=== PATIENT | female | born 1965 | race Caucasian/White ===

== ENCOUNTER 2020-04-06 11:43 | Day surgery (SDC) | payer OTHER, SELFPAY ==
[2020-04-06] VITALS (7 sets, daily range): BP systolic 130–152; BP diastolic 79–89; PULSE 60–71; RESP 12–20; TEMP 36.3–36.4; O2SAT 96–100; BMI 26.6
--- NOTE | ~2020-04-06 | XR_ITS ---
EXAMINATION: XR retrograde pyelo w/stent LT DATE: 04/06/2020 15:18 INDICATION: Left internal ureteral stent placement TECHNIQUE: Fluoroscopic images from a left internal ureteral stent placement are submitted for review . 8 seconds of fluoroscopy time. 8 fluoroscopic images FINDINGS: There is a left double-J internal ureteral stent projecting in expected position, with proximal Clare loop at the level of the renal pelvis. IMPRESSION: 1. Left internal ureteral stent placement. Please refer to real-time procedural findings for detail s. Reviewed, dictated and finalized at location B. IMPRESSION: 1. Left internal ureteral stent placement. Please refer to real-time procedur al findings for details.
[2020-04-06] MEDS: fentaNYL CITRATE INJ (*CRX) 100 MCG/2 ML VIAL 50 MCG IV PUSH (13:30)
[2020-04-06] MEDS: LACTATED RINGERS 1,000 ML 30 ML IV CONT ×2 (13:30→15:19)
--- NOTE | 2020-04-06 13:35 | WPDHPUPDATE1 ---
History and Physical Update Update Date/Time: 04/06/20 13:35 History and Physical has been reviewed, including an updated exam of the patient. There are NO changes in the patient's condition. Risks, benefits, and alternatives have been discussed and questions answered. Patient agrees to proceed with procedure. Proceed with cysto, left retrograde, left ureteroscopy with stone extraction, possible laser , stent placement.
--- NOTE | 2020-04-06 13:40 | WPDANESEPPF ---
Anes - Initial Pre Proc Eval Procedure: Operation Date: 04/06/20 15:00 Proposed Procedures p Cystoscopy, Left Ureteroscopy, Left Stone Extraction, Possible Left Retrograde Pyelogram, Possible Left Stent Placement - Derik Luna MD s Possible Holmium Laser Procedure - Derik Luna MD Date/Time: 04/06/20 13:40 Surgeon: Derik Luna MD Pre Op Diagnosis: Left Ureteral Stone Patient Data Age: 54 Gender: F Height: 5 ft 9 in Weight: 82 kg Allergies Allergy/AdvReac Type Severity Reaction Status Date / Time No Known Allergies Allergy Unknown Verified 04/06/20 12:42 Home Medications Medication Instructions Recorded Confirmed Type sertraline [Zoloft] 100 mg PO DAILY 04/06/20 04/06/20 History Patient hx anesthesia problems: none Family hx anesthesia problems: none [facility] Past Medical History Medical History (Updated 04/06/20 @ 13:41 by Adam Berry MD) Overweight Renal stones Surgical History Surgical History (Updated 04/06/20 @ 13:41 by Adam Berry MD) H/O lithotripsy Social History Social History Smoking status: Never smoker Alcohol intake: never Substance use: never Substance use type: does not use Living arrangements: with family Gender identity (if verbalized by the patient): Female Spiritual care concerns: No Anes - Eval Final PreProcedure Day of Procedure 04/06/20 13:40 Patient weight: overweight Heart: regular rate and rhythm Lungs: clear to auscultation Airway: Mallampati scale class 1 Neurological: alert and oriented Last oral intake: >/= 8 hours ASA classification: II Emergent: yes Anesthetic plan: proceed Anesthesia type and monitoring: general ETT and standard monitoring Informed Consent: The patient's anesthetic plan and its attendant risks and benefits were discussed with the patient/family/POA. Questions were solicited and answers provided to the satisfaction of the patient/family/POA.
[2020-04-06] MEDS: SCOPOLAMINE 1.5 MG PATCH TRANSDERM (13:49)
[2020-04-06] MEDS: ceFAZolin 2 GM/D5W 50 ML 2 GM/50 ML BAG IVPB (14:49)
--- NOTE | 2020-04-06 15:12 | PM.PROC ---
Procedure Note - Detailed Date of procedure: 04/06/20 Pre-op diagnosis: Left Ureteral Stone Post-op diagnosis: same Procedure performed: Cystoscopy, left retrograde pyelogram, left ureteroscopy with stone extraction, left ureteral stent placement. Description of procedure: Patient was taken to the operative suite and correctly identified. Once anesthesia was obtained she was placed in dorsal lithotomy position prepped draped usual sterile fashion. Twenty-two Canadian scope was inserted the bladder. The left ureteral orifice was cannulated with a guidewire. An 8/10 dilator was used to dilate the orifice. A rigid ureteral scope was then inserted. The stone was visualized we were able to retrieve it in its entirety using an escape basket. Pyelogram was then performed to confirm placement of the stent. 4.8 Canadian contour stent was then placed with proximal end coiled in the renal pelvis and the distal in the bladder. Bladder was drained. 2% viscous lidocaine was inserted urethra patient is taken recovery room stable condition. She will follow up in a week's time for stent removal Pet[facility] call for that appointment. Anesthesia: GLMA Surgeon: Derik Luna MD Drains: Yes Packing: No Pathology: yes Complications: No immediate complications Condition: stable Disposition: PACU
[2020-04-06] MEDS: LIDOCAINE HCL 2% GEL UROJET 10 ML PKG MUCOUS MEM (15:17)
--- NOTE | 2020-05-26 12:32 | PM.IMHP ---
H&P: HPI History of Present Illness Date/Time: 05/26/20 12:32 Chief complaint: Left Ureteral Stone Narrative: Jael Myles is a 54 year old female Who was found to have a left ureteral calculus. She now presents for definitive therapy with cysto left retrograde pyelogram left ureteroscopy with stone extraction possible laser stent placement. Review of Systems Review of Systems: All systems reviewed & are unremarkable except as noted in HPI and below PMFSH Past Medical History Medical History Overweight Renal stones Surgical History Surgical History H/O lithotripsy Social History Social History Smoking status: Never smoker Alcohol intake: never Substance use: never Substance use type: does not use Living arrangements: with family Gender identity (if verbalized by the patient): Female Spiritual care concerns: No Meds Home Medications and Allergies Home Medications Medication Instructions Recorded Confirmed Type sertraline [Zoloft] 100 mg PO DAILY 04/06/20 04/06/20 History Allergies Allergy/AdvReac Type Severity Reaction Status Date / Time No Known Allergies Allergy Unknown Verified 04/06/20 13:44 Exam Const: General: cooperative Eyes: General: appearance normal, both eyes and all related structures Chest: Chest palpation & inspection: normal inspection of the chest Resp: Effort & Inspection: normal respiratory effort Cardio: Rate: regular rate GI: Inspection: normal to inspection Assessment and Plan Assessment and plan (1) Left ureteral calculus: Code(s): N20.1 - Calculus of ureter Status: Acute Additional Plan Plan for cystoscopy, left retrograde pyelogram, left ureteroscopy with stone extraction, possible holmium laser, possible stent placement.
== END 2020-04-06 16:58 | disposition home or self-care (01) ==
PROVIDERS: PCP Family Medicine; Visit Provider Urology
PROC: (CPT 52352; principal; 2020-04-06 15:00)
DX: N20.1 Calculus of ureter (principal)
CPT/HCPCS: 52332; 52352; 74420; 82365; 88300; A9270; C1769; C2617; J0690; J1100; J1200; J1885; J2250; J2405; J2704; J3010; J7120; Q9966

== ENCOUNTER 2020-11-18 15:26 | Outpatient (CLI) | payer OTHER, SELFPAY ==
--- NOTE | ~2020-11-18 | XR_ITS ---
XR abdomen/kub 1V DATE: 11/18/2020 15:46 INDICATION: Left flank pain. History of stones. TECHNIQUE: AP projection, 2 views COMPARISON: 04/06/2020 left retrograde pyelogram 08/20/2018 CT abdomen pelvis 08/21/2017 KUB FINDINGS: Approximately 2.8 x 7 mm comma-shaped calcification overlies the distal left ureter, not pr esent on 08/21/2017, consistent with distal left ureteral calcified calculus. Calcifications overlie both renal silhouette suggesting bilateral nephrolithiasis. Noncontrast CT abd omen pelvis would be helpful for more definitive evaluation of urinary tract calculi. The psoas shadows are intact. No visceromegaly is evident. There is no evidence of bowel obstruction. IMPRESSION: Approximately 2.8 x 7 mm distal left ureteral calcified calculus Reviewed, dictated and finalized at Location A. Reviewed, dictated and finalized at location A.
== END 2020-11-18 15:27 | disposition home or self-care (01) ==
PROVIDERS: PCP Family Medicine; Visit Provider Urology
DX: R10.9 Unspecified abdominal pain (principal)
CPT/HCPCS: 74018

== ENCOUNTER 2021-10-11 00:56 | Day surgery (SDC) | payer OTHER, SELFPAY ==
[2021-10-10 15:05] VITALS: BMI 27.3
--- NOTE | 2021-10-10 15:10 | PC.NURSE ---
Report to the Outpatient Waiting Room, entrance under the green pavilion located off [facility], at time 0900__ on date _[id number]_. OR Time: _1100__. - You and your visitor will be asked a series of questions to screen for COVID 19 for your protection. - A mask is required within the hospital. - Patient has received COVID Vaccine at least 14 days prior to procedure date. Patients may have clear liquids (water, carbonated beverages, clear teas, apple juice) until 3 hours prior to surgery with a maximum of 20 ounces. - No food from midnight until time of surgery Take the following medications with a SIP of water the morning of surgery: ___pain pill if needed. Medications to discontinue per physician Date to take last dose Please no make-up, nail pashto, hairspray, perfume, deodorant, or body powder the day of surgery. No jewelry (including any body piercings) or valuables the day of surgery, leave them at home. Please take a shower or bath the night before, or the morning of, surgery with an antibacterial soap. Wear comfortable, loose fitting clothing. Children are encouraged to wear pajamas. - Jewelry must be removed prior to entering the operating room. Rings and piercings that are not removed may be cut off. - The hospital will not accept responsibility for valuables. - Please leave all valuables, including medications, at home the day of surgery. If you are going home after surgery, a licensed river driver must drive you home. - NO public transportation without another adult. - We recommend that an adult stay with you for 24 hours following discharge. - We also recommend that you do not drive, make important decision, drink alcoholic beverages, or take any drugs that were not prescribed by your health care provider for at least 24 hours after your discharge time. For Pediatric surgeries, we recommend two adults accompany the child home (only one inside the building at this time). One visitor will be allowed to accompany the patient into the hospital. Patients visitor will be instructed to remain with patient at all times or leave the building. We will allow the visitor to come back to the postoperative area when patient is ready. Follow any additional instructions given to you from your surgeon. Telephone instructions given to __Patient and asked if any additional questions and then verbalized understanding. Patient advised to call surgeon office or pre surgery nurse liaison [phone] if any additional questions.
[2021-10-11] VITALS (7 sets, daily range): BP systolic 116–148; BP diastolic 60–97; PULSE 68–88; RESP 14–20; TEMP 37–37.5; O2SAT 97–100
--- NOTE | ~2021-10-11 | XR_ITS ---
EXAMINATION: XR abdomen/kub 1V DATE: 10/11/2021 09:03 INDICATION: Left-sided kidney stones. TECHNIQUE: A supine view of the abdomen on 2 radiographs was obtained. COMPARISON: Abdomen radiographs 11/18/2020, CT abdomen and pelvis 08/20/2018 FINDINGS: There is a phlebolith in left pelvis. The kidneys are obscured by bowel. There are no dilat ed loops of bowel. There are stones in right kidney measuring up to 5 mm. A calcification overlying l eft kidney measuring 6 mm may be a stone. Calcifications overlie left side of the sacrum that may be stones in the distal left ureter. IMPRESSION: 1. Calcifications overlying left side of the sacrum that may be stones in the distal left ureter. 2. Bilateral kidney stones. Reviewed, dictated and finalized at location A. IMPRESSION: 1. Calcifications overlying left side of the sacrum that may be stones in the d istal left ureter. 2. Bilateral kidney stones.
--- NOTE | ~2021-10-11 | XR_ITS ---
EXAMINATION: XR retrograde pyelo w/stent LT DATE: 10/11/2021 12:01 INDICATION: Left ureteral stone TECHNIQUE: 3 fluoroscopic images of the abdomen and pelvis were obtained during procedure performed b romy Luna. Radiologist was not present for the imaging or procedure. The amount of fluoroscopy t tarun used during this procedure was 0.2 minutes. COMPARISON: None. FINDINGS: Retrograde contrast injection demonstrates mild mild left hydroureteronephrosis. A wire has been adva nced through the left ureter into an upper pole calyx of the left kidney. Subsequent images demonstra te placement of a left intrarenal stent with loops formed at the left renal pelvis and in the bladder . No stones seen along the course of the ureteral stent. IMPRESSION: 1. Mild left hydroureteronephrosis with placement of a left internal ureteral stent which is in expec katia position. See procedure note regarding the reported ureteral stone which is not appreciated on th e provided images. Reviewed, dictated and finalized at location B. IMPRESSION: 1. Mild left hydroureteronephrosis with placement of a left internal ureteral s tent which is in expected position. See procedure note regarding the reported u reteral stone which is not appreciated on the provided images.
--- NOTE | 2021-10-11 07:55 | P.PNAN_ITS ---
Anes - Initial Pre Proc Eval Procedure: Operation Date: 10/11/21 11:00 Proposed Procedures p Cystoscopy, Left Ureteroscopy, Left Retrograde Pyelogram, Left Stone Extraction, Possible Left Stent Placement, Possible Holmium Laser - Derik Luna MD Date/Time: 10/11/21 07:55 Surgeon: Derik Luna MD Pre Op Diagnosis: left ureteral stone Patient Data Age: 56 Gender: F Height: 1.75 m Weight: 84 kg Allergies Allergy/AdvReac Type Severity Reaction Status Date / Time No Known Allergies Allergy Unknown Verified 10/11/21 09:08 Home Medications Medication Instructions Recorded Confirmed Type sertraline [Zoloft] 100 mg PO HS 04/06/20 10/11/21 History oxycodone-acetaminophen 1 tablet PO Q4H PRN 10/10/21 10/11/21 History sulfamethoxazole-trimethoprim 1 tablet PO Q12H 10/10/21 10/11/21 History [Bactrim DS] Patient hx anesthesia problems: none Family hx anesthesia problems: none Results Review: All pre-operative results and documents have been reviewed as part of the pre-operative evaluation. [facility] Past Medical History Medical History (Updated 10/11/21 @ 07:56 by Shahab Cabrera MD) Anxiety Overweight Renal stones Surgical History Surgical History H/O lithotripsy Social History Social History Smoking status: Never smoker Alcohol intake: current Substance use: never Substance use type: does not use Living arrangements: with family Gender identity (if verbalized by the patient): Female Spiritual care concerns: No Anes - Eval Final PreProcedure Day of Procedure 10/11/21 07:55 Patient weight: overweight Heart: regular rate and rhythm Lungs: clear to auscultation and normal air movement Airway: Mallampati scale class II Neurological: alert and oriented Last oral intake: >/= 8 hours ASA classification: II Emergent: no Anesthetic plan: proceed Anesthesia type and monitoring: general LMA Results Review: All pre-operative results and documents have been reviewed as part of the pre-operative evaluation. Informed Consent: The patient's anesthetic plan and its attendant risks and benefits were discussed with the patient/family/POA. Questions were solicited and answers provided to the satisfaction of the patient/family/POA.
[2021-10-11] MEDS: LACTATED RINGERS 1,000 ML 30 ML IV CONT (09:31)
--- NOTE | 2021-10-11 09:53 | WPDHPUPDATE1 ---
History and Physical Update Update Date/Time: 10/11/21 09:53 History and Physical has been reviewed, including an updated exam of the patient. There are NO changes in the patient's condition. Risks, benefits, and alternatives have been discussed and questions answered. Patient agrees to proceed with procedure. Proceed with cystoscopy left retrograde pyelogram possible left ureteroscopy with holmium laser stone extraction and stent placement
--- NOTE | 2021-10-11 11:14 | PM.IMHP ---
H&P: HPI History of Present Illness Date/Time: 10/11/21 11:14 Chief Complaint: left ureteral calculi Narrative: 56 yr old female with left renal colic found to have multiple left ureteral calculi. Here for management. Review of Systems Review of Systems: All systems reviewed & are unremarkable except as noted in HPI and below PMFSH Past Medical History Medical History Anxiety Overweight Renal stones Surgical History Surgical History H/O lithotripsy Social History Social History Smoking status: Never smoker Alcohol intake: current Substance use: never Substance use type: does not use Living arrangements: with family Gender identity (if verbalized by the patient): Female Spiritual care concerns: No Meds Home Medications and Allergies Home Medications Medication Instructions Recorded Confirmed Type sertraline [Zoloft] 100 mg PO HS 04/06/20 10/11/21 History oxycodone-acetaminophen 1 tablet PO Q4H PRN 10/10/21 10/11/21 History sulfamethoxazole-trimethoprim 1 tablet PO Q12H 10/10/21 10/11/21 History [Bactrim DS] Allergies Allergy/AdvReac Type Severity Reaction Status Date / Time No Known Allergies Allergy Unknown Verified 10/11/21 09:08 Vital Signs Vital Signs - 24 hr 10/11/21 09:19 Temperature 37.5 C Pulse Rate 72 Respiratory Rate 16 Blood Pressure 127/81 Pulse Oximetry 99 Exam Const: General: cooperative Resp: Effort & Inspection: normal respiratory effort Cardio: Rate: regular rate Rhythm: regular rhythm Assessment and Plan Assessment and plan (1) Left ureteral calculus: Code(s): N20.1 - Calculus of ureter Status: Acute Assessment and Plan: cystoscopy, left retrograde, left ureteroscopy with stone extraction, laser , stent.
[2021-10-11] MEDS: ceFAZolin 2 GM/D5W 50 ML 2 GM/50 ML BAG IVPB (11:19)
[2021-10-11] MEDS: LIDOCAINE HCL 2% GEL UROJET 10 ML PKG MUCOUS MEM (11:36)
--- NOTE | 2021-10-11 11:56 | P.OP_ITS ---
Procedure Note - Detailed Date of Procedure 10/11/21 Pre-op Diagnosis left ureteral stone Post-op Diagnosis Same Procedure Performed Cystoscopy, left retrograde pyelogram, left ureteroscopy with holmium laser, stone extraction, stent placement 4.8 Maori contour Surgeon Derik Luna MD Anesthesia General Findings 2 stones noted the largest stone is bivalved and jagged. This would explain the perception were appearance of multiple additional stones on CT Description of Procedure Patient is taken to the operative suite and correctly identified. Once anesthesia was obtained she was prepped and draped usual sterile fashion. Twenty-two Maori scope inserted the bladder. Left orifice was cannulated with a guidewire. The rigid ureteral scope was inserted and. Smaller stone was retrieved using escape basket. The largest stone was bivalved and jagged. It was too large to retrieve 1 piece. Using a 200 micron fiber the stone was lasered into multiple pieces. These were retrieved and sent for analysis. Reinspection revealed no residual stones. Pyelogram was then performed to confirm placement the stent in the kidney. A 4.8 Maori contour stent was then placed with the proximal end coiled in the renal pelvis and the distal in the bladder. Bladder was drained. 2% viscous lidocaine was inserted into the urethra patient is taken recovery stable condition. She will follow up in a week's time for stent removal. Drains Yes Packing No Pathology Yes Complications No immediate complications Condition Stable Disposition PACU
--- NOTE | 2021-10-11 12:29 | SUR.PHASEI ---
1215 - pt has a area on tongue where she bit down on oral airway. MARCIA Coleman aware. pt understanding
== END 2021-10-11 13:34 | disposition home or self-care (01) ==
PROVIDERS: PCP Family Medicine; Visit Provider Urology
PROC: (CPT 52352; principal; 2021-10-11 11:00)
DX: N13.2 Hydronephrosis with renal and ureteral calculous obstruction (principal); F41.9 Anxiety disorder, unspecified
CPT/HCPCS: 52356; 74018; 74420; 82365; 88300; A9270; C1758; C1769; C2617; J0690; J1100; J2250; J2405; J2704; J3010; J7120; Q9966

== ENCOUNTER 2023-12-14 01:48 | Day surgery (SDC) | payer OTHER, SELFPAY ==
[2023-12-13 14:06] VITALS: BMI 28.0
--- NOTE | 2023-12-13 14:08 | PC.NURSE ---
Report to the Outpatient Waiting Room, entrance under the green pavilion located off [facility], at time _1230_ on date _[id number]_. Planned Procedure Time: _230pm_. Time changes happen often and if your time is changed the preop area will call you the afternoon before. - You and your visitor will be asked to self-screen and do not enter if you have any COVID symptoms. - A mask is optional within the hospital at this time. Patients may have clear liquids (water, carbonated beverages, clear teas, apple juice) until 3 hours prior to surgery with a maximum of 20 ounces. - No food from midnight until time of surgery Take the following medications with a SIP of water the morning of surgery: ____None DO NOT STOP ANY OF YOUR OTHER PRESCRIPTION MEDICATIONS PRIOR TO SURGERY ?EXCEPT THE FOLLOWING Medications to discontinue per physician ____None____ Date to take last dose Please no make-up, nail hong konger, hairspray, perfume, deodorant, or body powder the day of surgery. No jewelry (including any body piercings) or valuables the day of surgery, leave them at home. Please take a shower or bath the night before, or the morning of, surgery with an antibacterial soap. Wear comfortable, loose fitting clothing. - Jewelry must be removed prior to entering the operating room. Rings and piercings that are not removed may be cut off. - The hospital will not accept responsibility for valuables. - Please leave all valuables, including medications, at home the day of surgery. If you are going home after surgery, a licensed straight truck driver must drive you home. - NO public transportation without another adult if you receive anesthesia. - We recommend that an adult stay with you for 24 hours following discharge. - We also recommend that you do not drive, make important decision, drink alcoholic beverages, or take any drugs that were not prescribed by your health care provider for at least 24 hours after your discharge time. Follow any additional instructions given to you from your surgeon. If you or anyone in your household have experienced Covid symptoms in the past week, please notify your surgeon or the nurse liaison at the phone number below for possible testing. Telephone instructions given to __Tina and asked if any additional questions and then verbalized understanding. Patient advised to call surgeon office or pre surgery nurse liaison [phone] if any additional questions.
[2023-12-14] VITALS (7 sets, daily range): BP systolic 107–158; BP diastolic 62–98; PULSE 60–72; RESP 16–18; TEMP 36–36.9; O2SAT 96–100
--- NOTE | ~2023-12-14 | XR_ITS ---
EXAMINATION: XR retrograde pyelo w/stent LT DATE: 12/14/2023 13:47 INDICATION: Left ureteral stone. TECHNIQUE: 5 intraoperative fluoroscopic views of the abdomen and pelvis were obtained. I was not pre sent. Fluoroscopy exposure time was 23 seconds. COMPARISON: Abdomen radiograph 10/11/2021 FINDINGS: The left-sided retrograde pyelogram demonstrates mild hydronephrosis. The final image demon strates a left internal ureteral stent in expected position. There are stones in the right kidney. IMPRESSION: 1. Left internal ureteral stent in expected position. 2. Right kidney stones. Reviewed, dictated and finalized at location A.
--- NOTE | 2023-12-14 12:12 | P.HP_ITS ---
H&P: HPI History of Present Illness Date/Time: 12/14/23 12:12 Chief Complaint: Left ureteral calculus 6 x 5 mm Narrative: 58-year-old female who was found have a 6 x 5 mm left distal ureteral calculus. She now presents for cystoscopy, left retrograde pyelogram left ureteroscopy with stone extraction. She also has a 12 x 7 mm stone in the left kidney and a 19 x 11 mm stone in the right kidney. These will need to be addressed at a later point time. Review of Systems Review of Systems: All systems reviewed & are unremarkable except as noted in HPI and below [facility] Past Medical History Medical History (Updated 12/14/23 @ 12:14 by Derik Luna MD) Anxiety Overweight Renal stones Surgical History Surgical History H/O lithotripsy Social History Social History Smoking status: Never smoker Alcohol intake: current Substance use: never Substance use type: does not use Living arrangements: with family Gender identity (if verbalized by the patient): Female Spiritual care concerns: No Meds Home Medications and Allergies Home Medications Medication Instructions Recorded Confirmed Type sertraline 100 mg tablet (Zoloft) 100 mg PO HS 04/06/20 12/13/23 History Allergies Allergy/AdvReac Type Severity Reaction Status Date / Time No Known Allergies Allergy Unknown Verified 12/13/23 13:59 Exam Const: General: cooperative and no acute distress Resp: Effort & Inspection: normal respiratory effort Cardio: Rate: regular rate Rhythm: regular rhythm Assessment and Plan Assessment and plan (1) Left ureteral calculus: Code(s): N20.1 - Calculus of ureter Status: Acute Assessment and Plan: Plan for cystoscopy, left retrograde pyelogram, left ureteroscopy with stone extraction possible laser and stent placement (2) Bilateral renal stones: Code(s): N20.0 - Calculus of kidney Status: Acute Assessment and Plan: Will need to discuss treatment at a later point time with either lithotripsy or repeated ureteroscopy
--- NOTE | 2023-12-14 12:15 | WPDHPUPDATE1 ---
History and Physical Update Update Date/Time: 12/14/23 12:15 History and Physical has been reviewed, including an updated exam of the patient. There are NO changes in the patient's condition. Risks, benefits, and alternatives have been discussed and questions answered. Patient agrees to proceed with procedure. Proceed with cystoscopy, retrograde pyelogram, left ureteroscopy with stone extraction, possible laser, stent placement
[2023-12-14] MEDS: LACTATED RINGERS 1,000 ML 30 ML IV CONT (12:50)
[2023-12-14 12:53] LABS: Add Urine Microscopic? YES; Appearance Urine Clear (Clear); Bacteria Urine None Seen /hpf; Bilirubin Urine Negative (Negative); Blood Urine 1+ (Negative); Color Urine Yellow (Yellow); Glucose Urine UA Negative (Negative); Ketones Urine Negative (Negative); Leukocyte Esterase Ur Negative LEU/UL (Negative); Nitrate Urine Negative (Negative); Non Pathogenic Casts 0-2; Protein Urine Negative (Negative); RBC Urine 21-50 /hpf (0-2); Specific Grav Ur 1.011 (1.001-1.035); Squamous Epithelial Cell Urine None Seen /hpf (Few); Urobilinogen Urine 0.2 mg/dL (<2.0); WBC Urine 0-5 /hpf (0-3)
--- NOTE | 2023-12-14 12:55 | WPDANESEPPF ---
Anes - Initial Pre Proc Eval Procedure: Operation Date: 12/14/23 14:30 Proposed Procedures p Cystoscopy, Left Ureteroscopy, Left Retrograde Pyelogram, Left Stone Extraction, Possible Holmium Laser, Left Stent Placement - Derik Luna MD Date/Time: 12/14/23 12:55 Surgeon: Derik Luna MD Pre Op Diagnosis: Lt Ureteral Stone Patient Data Age: 58 Gender: F Height: 1.75 m Weight: 86 kg Allergies Allergy/AdvReac Type Severity Reaction Status Date / Time No Known Allergies Allergy Unknown Verified 12/13/23 13:59 Home Medications Medication Instructions Recorded Confirmed Type sertraline 100 mg tablet (Zoloft) 100 mg PO HS 04/06/20 12/13/23 History Laboratory Tests 12/14/23 12:44 Urine Color Yellow (Yellow) Urine Appearance Clear (Clear) Urine pH 7.0 (5.0-9.0) Ur Specific [place] 1.011 (1.001-1.035) Urine Protein Negative mg/dL (Negative) Urine Glucose (UA) Negative mg/dL (Negative) Urine Ketones Negative mg/dL (Negative) Ur Blood (Man) 1+ H (Negative) Urine Nitrate Negative (Negative) Urine Bilirubin Negative (Negative) Urine Urobilinogen 0.2 mg/dL (<2.0) Leukocyte Esterase Rfl Negative BELINDA/UL (Negative) Urine RBC 21-50 H /hpf (0-2) Urine WBC 0-5 /hpf (0-3) Ur Squamous Epith Cells None seen /hpf (Few) Urine Bacteria None seen /hpf Urine Casts 0-2 Patient hx anesthesia problems: none Family hx anesthesia problems: none Results Review: All pre-operative results and documents have been reviewed as part of the pre-operative evaluation. [facility] Past Medical History Medical History Anxiety Overweight Renal stones Surgical History Surgical History H/O lithotripsy Social History Social History Smoking status: Never smoker Alcohol intake: current Substance use: never Substance use type: does not use Living arrangements: with family Gender identity (if verbalized by the patient): Female Spiritual care concerns: No Anes - Eval Final PreProcedure Day of Procedure 12/14/23 12:55 Patient weight: overweight Heart: regular rate and rhythm Lungs: clear to auscultation Airway: Mallampati scale class II Neurological: alert and oriented Last oral intake: >/= 8 hours ASA classification: II Emergent: no Anesthetic plan: proceed Anesthesia type and monitoring: general LMA and standard monitoring Results Review: All pre-operative results and documents have been reviewed as part of the pre-operative evaluation. Informed Consent: The patient's anesthetic plan and its attendant risks and benefits were discussed with the patient/family/POA. Questions were solicited and answers provided to the satisfaction of the patient/family/POA.
[2023-12-14] MEDS: ceFAZolin 2 GM/D5W 50 ML 2 GM/50 ML BAG IVPB (13:03)
[2023-12-14] MEDS: LIDOCAINE HCL 2% GEL UROJET 10 ML PKG MUCOUS MEM (13:14)
--- NOTE | 2023-12-14 13:46 | W.PM.PROC2 ---
Procedure Note - Detailed Date of Procedure 12/14/23 Pre-op Diagnosis Lt Ureteral Stone and renal stone Post-op Diagnosis Same Procedure Performed Cystoscopy, left retrograde pyelogram, left ureteroscopy extraction of left ureteral calculus and laser of left renal calculus, left ureteral stent placement 4.8 Green[place]ic contour Surgeon Derik Luna MD Anesthesia General Description of Procedure Patient is taken to the operative suite correctly identified. Once anesthesia was obtained she was placed in dorsal lithotomy position and prepped and draped usual sterile fashion. Twenty-two Green[place]ic scope was inserted in the bladder. There were no tumors noted. The left ureteral orifice was cannulated with a guidewire. I dilated with an 8/10 dilator. Mini flexible ureteral scope was inserted. The distal ureteral stone was visualized. Using escape basket was retrieved and sent for analysis. The scope was then passed all the way up to the kidney. She did have some stones in the calices which were submucosal. A larger stone was visualized in the upper pole system. Using a 200 micron fiber I lasered this stone. Pieces were too small to retrieve. Pyelogram was then performed to confirm placement of the stent. 4.8 [place]ic contour stent was placed with the proximal end coiled in the left renal pelvis and the distal in the bladder. Bladder was drained. Patient was taken recovery stable condition. 2% viscous lidocaine for inserted into the urethra. Patient will follow-up in a week's time for left stent removal. Will address the right renal stone and a different time. This completes dictation. Please send a copy of op note to my office. Estimated Blood Loss 0 Drains Yes Packing No Pathology Yes Complications No immediate complications Condition Stable Disposition PACU
[2023-12-14] MEDS: oxyBUTYnin CHLORIDE 5 MG TABLET PO (15:15)
--- NOTE | 2023-12-14 15:15 | SUR.PHASEII ---
PATIENT C/O'ING LOWER ABDOMINAL PRESSURE/CRAMPING. SHE THINKS IT'S SIMILAR TO OTHER TIMES SHE HAD A STENT PLACED; STATES OXYBUTYNIN HELPS; DR. LÓPEZ CALLED; INSTRUCTED TO GIVE OXYBUTYNIN.
== END 2023-12-14 15:32 | disposition home or self-care (01) ==
PROVIDERS: PCP Family Medicine; Visit Provider Urology
PROC: (CPT 52352; principal; 2023-12-14 14:30)
DX: N20.1 Calculus of ureter (principal); F41.9 Anxiety disorder, unspecified; Z98.890 Other specified postprocedural states
CPT/HCPCS: 52356; 74420; 81001; 82365; 88300; A9270; C1769; C2617; J0690; J1100; J2250; J2405; J2704; J3010; J7120; Q9966

== ENCOUNTER 2024-01-24 13:28 | Outpatient (CLI) | payer OTHER, SELFPAY ==
--- NOTE | ~2024-01-24 | XR_ITS ---
XR abdomen/kub 1V Ordering provider: Derik Luna MD History: . HX OF MULTIPLE STONES . Comparison: October 11, 2021 FINDINGS: BOWEL: Nonobstructive bowel gas pattern. ORGANOMEGALY: None. SIGNIFICANT PATHOLOGIC CALCIFICATIONS: Right kidney stones. Faint calcifications in the left kidney a sean. OTHER: No free air is seen under the diaphragm. IMPRESSION: NO ACUTE ABDOMINAL FINDINGS. Bilateral kidney stones. Reviewed, dictated and finalized at location A.
== END 2024-01-24 13:29 | disposition home or self-care (01) ==
LOC: ANHIMG 13:29
PROVIDERS: PCP Family Medicine; Visit Provider Urology
DX: N20.1 Calculus of ureter (principal); N20.0 Calculus of kidney
CPT/HCPCS: 74018

== ENCOUNTER 2024-02-01 01:44 | Day surgery (SDC) | payer OTHER, SELFPAY ==
--- NOTE | 2024-01-31 08:58 | PC.NURSE ---
Report to the Outpatient Waiting Room, entrance under the green pavilion located off [facility], at time __9:00AM on date _02/01/24 . Planned Procedure Time: __11:00 AM . Time changes happen often and if your time is changed the preop area will call you the afternoon before. - You and your visitor will be asked to self-screen and do not enter if you have any COVID symptoms. - A mask is optional within the hospital at this time. Patients may have clear liquids (water, carbonated beverages, clear teas, apple juice) until 3 hours prior to surgery (8:00AM)with a maximum of 20 ounces. - No food from midnight until time of surgery - Infants may have breast milk until 4 hours before surgery, infant formula 6 hours prior to surgery. - Children will be allowed to drink immediately following surgery. If applicable, please bring a bottle or sippy cup to assist with drinking. Juice, water, soda, and popsicles are readily available. For infants on formula, please bring formula the day of surgery. Pacifiers are allowed. Take the following medications with a SIP of water the morning of surgery: NONE DO NOT STOP ANY OF YOUR OTHER PRESCRIPTION MEDICATIONS PRIOR TO SURGERY ?EXCEPT THE FOLLOWING Medications to discontinue per physician NONE Please no make-up, nail ukrainian, hairspray, perfume, deodorant, or body powder the day of surgery. No jewelry (including any body piercings) or valuables the day of surgery, leave them at home. Please take a shower or bath the night before, or the morning of, surgery with an antibacterial soap. Wear comfortable, loose fitting clothing. Children are encouraged to wear pajamas. - Jewelry must be removed prior to entering the operating room. Rings and piercings that are not removed may be cut off. - The hospital will not accept responsibility for valuables. - Please leave all valuables, including medications, at home the day of surgery. If you are going home after surgery, a licensed route driver must drive you home. - NO public transportation without another adult if you receive anesthesia. - We recommend that an adult stay with you for 24 hours following discharge. - We also recommend that you do not drive, make important decision, drink alcoholic beverages, or take any drugs that were not prescribed by your health care provider for at least 24 hours after your discharge time. Follow any additional instructions given to you from your surgeon. If you or anyone in your household have experienced Covid symptoms in the past week, please notify your surgeon or the nurse liaison at the phone number below for possible testing. Telephone instructions given to ___PATIENT and asked if any additional questions and then verbalized understanding. Patient advised to call surgeon office or pre surgery nurse liaison [phone] if any additional questions.
[2024-01-31 09:02] VITALS: BMI 28.0
[2024-02-01] VITALS (8 sets, daily range): BP systolic 109–146; BP diastolic 71–81; PULSE 45–73; RESP 10–16; TEMP 36.1–36.3; O2SAT 95–100
--- NOTE | ~2024-02-01 | XR_ITS ---
XR abdomen/kub 1V Ordering provider: Derik Luna MD History: . ESWL . Comparison: January 24, 2024 FINDINGS: BOWEL: Nonobstructive bowel gas pattern. ORGANOMEGALY: None. SIGNIFICANT PATHOLOGIC CALCIFICATIONS: Right kidney stones unchanged. Left kidney stone is unchanged. No definite ureteric stones OTHER: Sclerotic area in the right acetabulum most likely bone island. Degenerative spine No free air is seen under the diaphragm. IMPRESSION: NO ACUTE ABDOMINAL FINDINGS. Bilateral kidney stones with no significant change. Reviewed, dictated and finalized at location A.
--- NOTE | 2024-02-01 09:11 | WPDHPUPDATE1 ---
History and Physical Update Update Date/Time: 02/01/24 09:11 History and Physical has been reviewed, including an updated exam of the patient. There are NO changes in the patient's condition. Risks, benefits, and alternatives have been discussed and questions answered. Patient agrees to proceed with procedure. Proceed with eswl of right renal calculus
--- NOTE | 2024-02-01 10:01 | P.PNAN_ITS ---
Anes - Initial Pre Proc Eval Procedure: Operation Date: 02/01/24 11:00 Proposed Procedures p Right Renal Extracorporeal Shock Wave Lithotripsy - Derik Luna MD Date/Time: 02/01/24 10:01 Surgeon: Derik Luna MD Pre Op Diagnosis: bilat renal stones Patient Data Age: 58 Gender: F Height: 1.75 m Weight: 86.2 kg Allergies Allergy/AdvReac Type Severity Reaction Status Date / Time No Known Allergies Allergy Unknown Verified 01/31/24 08:52 Home Medications Medication Instructions Recorded Confirmed Type sertraline 100 mg tablet (Zoloft) 100 mg PO HS 04/06/20 01/31/24 History Laboratory Tests 02/01/24 09:44 PT Pending INR Pending APTT Pending Patient hx anesthesia problems: none Family hx anesthesia problems: none Results Review: All pre-operative results and documents have been reviewed as part of the pre- operative evaluation. [facility] Past Medical History Medical History Anxiety Overweight Renal stones Surgical History Surgical History H/O lithotripsy Social History Social History Smoking status: Never smoker Alcohol intake: current Drinks per week: 1 Substance use: never Substance use type: does not use Living arrangements: with family Gender identity (if verbalized by the patient): Female Spiritual care concerns: No Anes - Eval Final PreProcedure Day of Procedure 02/01/24 10:01 Patient weight: overweight Heart: regular rate and rhythm Lungs: clear to auscultation Airway: Mallampati scale class II Neurological: alert and oriented Last oral intake: >/= 8 hours ASA classification: II Emergent: no Anesthetic plan: proceed Anesthesia type and monitoring: general LMA and standard monitoring Results Review: All pre-operative results and documents have been reviewed as part of the pre- operative evaluation. Informed Consent: The patient's anesthetic plan and its attendant risks and benefits were discussed with the patient/family/POA. Questions were solicited and answers provided to the satisfaction of the patient/family/POA.
[2024-02-01 10:29] LABS: Prothrombin Time 13.5 Seconds (11.1-14.7)
[2024-02-01 10:30] LABS: Partial Thromboplastin Time 29.1 Seconds (22.3-36.8)
[2024-02-01] MEDS: LACTATED RINGERS 1,000 ML 30 ML IV CONT ×2 (10:30→11:38)
--- NOTE | 2024-02-01 11:34 | W.PM.PROC2 ---
Procedure Note - Detailed Date of Procedure 02/01/24 Pre-op Diagnosis Right renal calculus 1.5 x 0.7 cm Post-op Diagnosis Same Procedure Performed Lithotripsy of right renal calculus Surgeon Derik Luna MD Anesthesia General Description of Procedure Patient was taken to the operative suite correctly identified. Once anesthesia was obtained the stone was localized in both planes. Two thousand five hundred shocks were given to the stone. There appeared to be good fragmentation but only possibly half the stone has fragmented. Patient was hoping to avoid a stent. As such will try and go without it. Patient tolerated procedure well without any complications and was taken recovery stable condition. She will follow-up in 7-10 days with a KUB. This completes dictation. Please send a copy of op note to my office Estimated Blood Loss 0 Drains No Packing No Pathology None sent Complications No immediate complications Condition Stable Disposition PACU
--- NOTE | 2024-02-01 12:45 | SUR.PHASEII ---
MD Luna office contacted - no order for KUB for follow up. Office staff states they spoke with him in office to confirm - she will need KUB order. MD Luna will order. Office will fax it to [facility].
[2024-02-01] MEDS: oxyCODONE HCL (*CRX) 5 MG TAB IR PO (12:55)
== END 2024-02-01 13:21 | disposition home or self-care (01) ==
PROVIDERS: PCP Family Medicine; Visit Provider Urology
PROC: (CPT 50590; principal; 2024-02-01 11:00)
DX: N20.0 Calculus of kidney (principal)
CPT/HCPCS: 50590; 36415; 74018; 85610; 85730; A9270; J0690; J1100; J2250; J2405; J2704; J3010; J7120

== ENCOUNTER 2024-02-08 10:51 | Outpatient (CLI) | payer OTHER, SELFPAY ==
--- NOTE | ~2024-02-08 | CT_ITS ---
EXAMINATION: CT abdomen pelvis wo con DATE: 02/08/2024 11:18 INDICATION: Bilateral kidney stones. TECHNIQUE: Computed tomography (CT) of the abdomen and pelvis was performed without intravenous contr ast. Automated exposure control and iterative reconstruction technique were employed. The dose-length product was 393.72 mGy-cm. COMPARISON: CT abdomen pelvis 08/20/2018 FINDINGS: The visualized portions of the lung bases demonstrate mild atelectasis. No pleural effusion . The heart size is normal. No pericardial effusion. The liver and gallbladder are normal. Calcificat ions in the spleen are consistent with old granulomatous disease. The pancreas and adrenal glands are normal. There are at least 3 stones in right kidney measuring up to 9 mm. There is severe right hydr onephrosis and proximal hydroureter. There is a cluster of at least 2 stones measuring up to 7 mm in right ureter where it crosses the iliac vessels. There are greater than 10 stones in left kidney rolando uring up to 6 mm. There are no dilated loops of bowel. The appendix is not visualized. There are no p athologically enlarged lymph nodes. There is no free intraperitoneal fluid. There is moderate lumbar spondylosis. IMPRESSION: 1. Stones in mid right ureter with severe right hydronephrosis and proximal hydroureter. 2. Bilateral nonobstructing kidney stones. Reviewed, dictated and finalized at location A. IMPRESSION: 1. Stones in mid right ureter with severe right hydronephrosis and proximal hyd roureter. 2. Bilateral nonobstructing kidney stones.
--- NOTE | ~2024-02-08 | XR_ITS ---
XR abdomen/kub 1V Ordering provider: Derik Luna MD History: . Bilateral renal stones SURG 1 WEEK RT SIDED ABD PAIN X YESTE . Comparison: None. FINDINGS: BOWEL: Nonobstructive bowel gas pattern. ORGANOMEGALY: None. SIGNIFICANT PATHOLOGIC CALCIFICATIONS: Stones projected over the right sacral alar. Multiple Stones i n the right kidney. Stone in the left kidney upper pole.. OTHER: Bilateral sacroiliitis No free air is seen under the diaphragm. IMPRESSION: NO ACUTE ABDOMINAL FINDINGS. Bilateral kidney stones. Right lower ureteric stones. Reviewed, dictated and finalized at location A.
== END 2024-02-08 10:52 | disposition home or self-care (01) ==
PROVIDERS: PCP Family Medicine; Visit Provider Urology
DX: N20.0 Calculus of kidney (principal); N20.1 Calculus of ureter
CPT/HCPCS: 74018; 74176

== ENCOUNTER 2024-02-12 02:11 | Day surgery (SDC) | payer OTHER, SELFPAY ==
[2024-02-08 16:02] VITALS: BMI 28.1
--- NOTE | 2024-02-08 16:07 | PC.NURSE ---
Report to the Outpatient Waiting Room, entrance under the green pavilion located off [facility], at time _1130_ on date _[id number]_. Planned Procedure Time: _130pm_.? Time changes happen often and if your time is changed the preop area will call you the afternoon before. - You and your visitor will be asked to self-screen and do not enter if you have any COVID symptoms. Please call surgeon if you need to reschedule. - A mask is optional within the hospital at this time. Patients may have clear liquids (water, carbonated beverages, clear teas, apple juice) until 3 hours prior to surgery with a maximum of 20 ounces. - No food from midnight until time of surgery and no smoking Take only the following medications with a SIP of water on the morning of surgery: ____Tramadol if needed DO NOT STOP ANY OF YOUR OTHER PRESCRIPTION MEDICATIONS PRIOR TO SURGERY EXCEPT THE FOLLOWING Medications to discontinue per physician None Date to take last dose Please no make-up, nail hungarian, hairspray, perfume, deodorant, or body powder the day of surgery.? No jewelry (including any body piercings) or valuables the day of surgery, leave them at home.? Please take a shower or bath the night before, or the morning of, surgery with an antibacterial soap.? Wear comfortable, loose fitting clothing.? - Jewelry must be removed prior to entering the operating room.? Rings and piercings that are not removed may be cut off. - The hospital will not accept responsibility for valuables.? - Please leave all valuables, including medications, at home the day of surgery. If you are going home after surgery, a licensed regional refrigerated cdl truck driver must drive you home.? - NO public transportation without another adult if you receive anesthesia. - We recommend that an adult stay with you for 24 hours following discharge. - We also recommend that you do not drive, make important decision, drink alcoholic beverages, or take any drugs that were not prescribed by your health care provider for at least 24 hours after your discharge time. Follow any additional instructions given to you from your surgeon. Telephone instructions given to __Tina__and asked if any additional questions and then verbalized understanding. Patient advised to call surgeon office or pre surgery nurse liaison [phone] if any additional questions.
[2024-02-12] VITALS (7 sets, daily range): BP systolic 130–153; BP diastolic 69–109; PULSE 57–69; RESP 12–18; TEMP 36.6–36.9; O2SAT 96–100
--- NOTE | ~2024-02-12 | XR_ITS ---
EXAMINATION: XR retrograde pyelo w/stent RT DATE: 02/12/2024 14:21 INDICATION: Right internal ureteral stent placement TECHNIQUE: Fluoroscopic images from a right internal ureteral stent placement are submitted for eder hicks 22 seconds of fluoroscopy time. FINDINGS: There is a right double-J internal ureteral stent projecting in expected position, with proximal [place] loop at the level of the renal pelvis. Distal loop is not visualized.. IMPRESSION: 1. Right internal ureteral stent placement. Please refer to real-time procedural findings for elio ls. Reviewed, dictated and finalized at location B. IMPRESSION: 1. Right internal ureteral stent placement. Please refer to real-time procedu ral findings for details.
--- NOTE | ~2024-02-12 | CT_ITS ---
EXAMINATION: CT abdomen pelvis wo con DATE: 02/12/2024 12:15 INDICATION: Renal calculi TECHNIQUE: Computed tomography (CT) of the abdomen and pelvis was performed without intravenous contr ast. Automated exposure control and iterative reconstruction technique were employed. The dose-length product was 376.22 mGy-cm. COMPARISON: 02/08/2024 FINDINGS: Calcified left lower lobe nodule along with a few small splenic calcifications consistent with old gr anulomatous disease. Heart size normal. No pericardial or pleural effusion. Liver, gallbladder, pancr eas and bilateral adrenal glands are normal. Bilateral nephrolithiasis with at least 12 nonobstructin g stones at the left kidney, the largest measuring up to 5 mm. There are multiple right-sided renal s tones including a nonobstructing cluster of stones extending for 2.7 cm in length and up to 7 mm in m aximal diameter along the mid right ureter with moderate right hydroureteronephrosis. There are coupl e additional 3-4 mm stones at the right ureteropelvic junction and at least 4 stones measuring up to 2 mm in the lower pole calyces of the right kidney. Bowels including the appendix are normal. Bladder , uterus and bilateral adnexa are unremarkable. No free intraperitoneal gas or fluid. No pathological ly enlarged abdominal or pelvic lymphadenopathy. Mild lumbar spondylosis. Right supra-acetabular bone island. IMPRESSION: 1. Bilateral nephrolithiasis with 2.7 cm long up to 7 mm diameter collection of nonobstructing stones in the mid right ureter with moderate more proximal right hydroureteronephrosis. Reviewed, dictated and finalized at location A. IMPRESSION: 1. Bilateral nephrolithiasis with 2.7 cm long up to 7 mm diameter collection of nonobstructing stones in the mid right ureter with moderate more proximal righ t hydroureteronephrosis.
[2024-02-12] MEDS: LACTATED RINGERS 1,000 ML 30 ML IV CONT (12:59)
--- NOTE | 2024-02-12 13:01 | WPDHPUPDATE1 ---
History and Physical Update Update Date/Time: 02/12/24 13:01 History and Physical has been reviewed, including an updated exam of the patient. There are NO changes in the patient's condition. Risks, benefits, and alternatives have been discussed and questions answered. Patient agrees to proceed with procedure. Proceed with cystoscopy, right retrograde, right ureteroscopy with laser, stent placement
--- NOTE | 2024-02-12 13:07 | P.PNAN_ITS ---
Anes - Initial Pre Proc Eval Procedure: Operation Date: 02/12/24 13:30 Proposed Procedures p Cystoscopy, Right Ureteroscopy, Right Retrograde Pyelogram, Holmium Laser Stone Extraction, Right Stent Placement - Derik Luna MD Date/Time: 02/12/24 13:07 Surgeon: Derik uLna MD Pre Op Diagnosis: Del Ureteral Kidney Stone Patient Data Age: 58 Gender: F Height: 1.75 m Weight: 92 kg Last Vital Signs Temp 97.9 F 02/12/24 12:34 Pulse 63 02/12/24 12:34 Resp 16 02/12/24 12:34 BP 142/69 H 02/12/24 12:34 Pulse Ox 98 02/12/24 12:34 O2 Del Method Room Air 02/12/24 12:34 Allergies Allergy/AdvReac Type Severity Reaction Status Date / Time No Known Allergies Allergy Unknown Verified 02/12/24 12:23 Home Medications Medication Instructions Recorded Confirmed Type sertraline 100 mg tablet (Zoloft) 100 mg PO HS 04/06/20 02/12/24 History tramadol 50 mg tablet 50 mg PO Q6H PRN pain #20 tabs 02/01/24 02/12/24 Rx Patient hx anesthesia problems: none Family hx anesthesia problems: none Results Review: All pre-operative results and documents have been reviewed as part of the pre- operative evaluation. [facility] Past Medical History Medical History Anxiety Overweight Renal stones Surgical History Surgical History H/O lithotripsy Social History Social History Smoking status: Never smoker Alcohol intake: current Drinks per week: 1 Substance use: never Substance use type: does not use Living arrangements: with family Gender identity (if verbalized by the patient): Female Spiritual care concerns: No Anes - Eval Final PreProcedure Day of Procedure 02/12/24 13:07 Patient weight: overweight Heart: regular rate and rhythm Lungs: clear to auscultation Airway: Mallampati scale class II Neurological: alert and oriented Last oral intake: >/= 8 hours ASA classification: II Emergent: no Anesthetic plan: delay Anesthesia type and monitoring: general LMA and standard monitoring Results Review: All pre-operative results and documents have been reviewed as part of the pre- operative evaluation. Anxiety, overweight. Informed Consent: The patient's anesthetic plan and its attendant risks and benefits were discussed with the patient/family/POA. Questions were solicited and answers provided to the satisfaction of the patient/family/POA.
[2024-02-12] MEDS: ceFAZolin 2 GM/D5W 50 ML 2 GM/50 ML BAG IVPB (13:13)
[2024-02-12] MEDS: LIDOCAINE HCL 2% GEL UROJET 10 ML PKG MUCOUS MEM (14:14)
--- NOTE | 2024-02-12 14:21 | W.PM.PROC2 ---
Procedure Note - Detailed Date of Procedure 02/12/24 Pre-op Diagnosis Right ureteral calculus and renal calculus Post-op Diagnosis Same Procedure Performed Cystoscopy, right retrograde pyelogram, right ureteroscopy with holmium laser, stone extraction, stent placement Surgeon Derik Luna MD Anesthesia General Description of Procedure Patient was taken to the operative suite correctly identified. Once anesthesia was obtained she was placed in dorsal lithotomy position and prepped and draped usual sterile fashion. Twenty-two [place] Islander scope was inserted the bladder. There were no tumors noted. The right ureteral orifice was cannulated with a guidewire. I could not get past the impacted ureteral stone. I then dilated with an 810 dilator and placed the rigid ureteral scope in. Using a 200 micron fiber we lasered the stone and retrieve the pieces. I was able to manipulate the wire all the way up to the kidney at this point. The proximal ureteral stone was visualized and lasered. Some of the fragments went into the kidney and I went into the kidney and fragmented any visible stones. Pyelogram was then performed to confirm placement of the stent. 4.8 [place] Island[place] contour stent was placed with the proximal coiled in the renal pelvis and the distal in the bladder. Bladder was drained. 2% viscous lidocaine was inserted urethra patient is taken recovery stable condition. She will follow-up in a week or so for stent removal. This completes dictation please send a copy of op note to my office Estimated Blood Loss 0 Drains Yes Packing No Pathology Yes Complications No immediate complications Condition Stable Disposition PACU
--- NOTE | 2024-02-12 14:58 | SUR.PHASEI ---
simple mask removed [id number].
[2024-02-12] MEDS: oxyCODONE HCL (*CRX) 5 MG TAB IR PO (15:43)
== END 2024-02-12 16:10 | disposition home or self-care (01) ==
PROVIDERS: PCP Family Medicine; Visit Provider Urology
PROC: (CPT 52352; principal; 2024-02-12 13:30)
DX: N20.2 Calculus of kidney with calculus of ureter (principal)
CPT/HCPCS: 52356; 74176; 74420; 82365; 88300; A9270; C1769; C1894; C2617; J0690; J2250; J2405; J2704; J3010; J7120; Q9966

== ENCOUNTER 2024-03-27 13:23 | Outpatient (CLI) | payer OTHER, SELFPAY ==
--- NOTE | ~2024-03-27 | XR_ITS ---
XR abdomen/kub 1V Ordering provider: Derik Luna MD History: . RIGHT URETERAL STONE, FOLLOW-UP . Comparison: February 08, 2024 FINDINGS: BOWEL: Nonobstructive bowel gas pattern. ORGANOMEGALY: None. SIGNIFICANT PATHOLOGIC CALCIFICATIONS: Highly suggestive stone in the left kidney upper pole. OTHER: No free air is seen under the diaphragm. Small sclerotic area in the left pubic bone unchanged. IMPRESSION: NO ACUTE ABDOMINAL FINDINGS. Highly suggestive Stone in the left kidney Reviewed, dictated and finalized at location A.
== END 2024-03-27 13:24 | disposition home or self-care (01) ==
LOC: ANHIMG 13:25
PROVIDERS: PCP Family Medicine; Visit Provider Urology
DX: N20.1 Calculus of ureter (principal)
CPT/HCPCS: 74018

== ENCOUNTER 2025-05-15 14:04 | Outpatient (CLI) | payer OTHER, SELFPAY ==
--- NOTE | ~2025-05-15 | XR_ITS ---
EXAMINATION: XR abdomen/kub 1V, 05/15/2025 14:23 SHIPFITTERS SUPERVISOR HISTORY: Calcium kidney stone COMPARISON: No comparisons available. Technique: 3 view. Findings: Bowel gas pattern unremarkable. No obstruction. Left kidney midpole 3 mm renal calculus. No acute osseous abnormality. Impression: 1. No acute abnormality. Reviewed, dictated and finalized at location P. FITTERS SUPERVISOR Impression: 1. No acute abnormality.
--- OUTSIDE RECORDS SUMMARY | 2025-05-15 14:16 | XMS_ITS | Clinical Summary ---
Author Organization [facility] Address [address] [facility] [address] Phone Care Team Providers Care Industrial Ecologist Name Role Phone Annita Sanchez MD Primary Care Pr ovider Allergies No known active allergies Medications sertraline (ZOLOFT) 100 mg Oral tablet Take 150 mg by mouth daily. Active Active Problems Patient Care Coordination No te Formatting of this note migh t be different from the original. Primary Care: Annita Ross MD Referring Provider: Tracie Benson [address] [place] [address] Other: Problem Noted Date Diagnosed Date Abnormal mammogram 04/19/2012 Encounters Date Type Department Care Team Description 05/05/2025 External Device Data [facility] ABSTRACTION Provider, Abstract 04/15/2025 External Device Data [facility] ABSTRACTION Provider, Abstract from Last 3 Months Family History Medical History Relation Name Comments Melanoma Father Breast Cancer Neg Hx Ovarian Cancer Neg Hx Relation Name Status Comments Father Social History Tobacco Use Types Packs/Day Years Used Date Smoking Tobacco: Never Smokeless Tobacco: Never Alcohol Use Standard Drinks/Week Comments No 0 (1 standard drink = 0.6 oz pur e alcohol) Comments No Sex and Gender Information Value Date Recorded Sex Assigned at Not on file 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 Gender Identity Not on file Sexual Orientation Not on file Occupation Industry Job Start Date Job End Date Not on file Not on file Not on file Not on file Last Filed Vital Signs Vital Sign Reading Time Taken Comments Blood Pressure 146/88 11/08/2012 12:43 PM CDT Pulse - - Temperature - - Respiratory Rate - - Oxygen Saturation - - Inhaled Oxygen Concentration - - Weight 79.8 kg (176 lb) 11/08/2012 12:43 PM CDT Height 175.3 cm (5' 9) 11/08/2012 12:43 PM CDT Body Mass Index 25.99 11/08/2012 12:43 PM CDT Plan of Treatment Health Maintenance Due Date Last Done Comments DTAP/TDAP/TD VACCINES (1 - Tdap) 1982 HPV/Cotest (21-29) 1984 CERVICAL CANCER SCREENING 1993 HPV/Cotest (30-65) 1993 PAP SMEAR 1993 COLORECTAL SCREENING 2008 Colorectal Cancer Screening 2008 FIT-DNA Q 3 years 2008 FIT/FOBT Q 1 year 2008 Flex Sig/CT Colonography Q 5 years 2008 ZOSTER VACCINE (1 of 2) 2013 INFLUENZA VACCINE (#1) 2025 BREAST CANCER SCREENING 09/03/2025 09/04/19 25, 08/30/2023, 08/28/2022, Additional history exists RSV VACCINE (60+ or ) (1 - 1-dose 75+ series) 2038 Procedures Procedure Name Priority Date/Time Associated Diagnosis Comments MAMMO 3D TANESHA SCREEN BILAT W OR WO CAD Routine 09/03/2024 11:18 AM CDT Screening mammogram for breast cancer from Last 3 Months or Most Recently Relevant to Health Maintenance Results * MAMMO 3D TANESHA SCREEN BILAT W OR WO CAD (09/03/2024 11:18 AM CDT) Anatomical Region Laterality Modality Breast Bilateral Mammography 09/03/2024 11:1 9 AM CDT Impressions 09/03/2024 11:29 AM CDT IMPRESSION: No mammographic evidence of malignancy. OVERALL FINAL ASSESSMENT: BI-RADS Category 1: Negative mammogram. RECOMMENDATION: Bilateral screening mammogram in one year. [address] 09/03/2024 11:29 AM CDT BILATERAL SCREENING DIGITAL MAMMOGRAM WITH 3D TOMOSYNTHESIS AND CAD DATE: 09/03/2024 11:18 AM COMPARISON: Multiple prior mammograms, dating back to 08/15/2019 and most recently . HISTORY: Screening mammogram. TECHNIQUE: Low-dose full-field digital breast tomosynthesis examination was performed with 2D and tomosynthesis acquisitions. Examination is read in conjunction with computer aided detection. BREAST COMPOSITION: There are scattered areas of fibroglandular density. FINDINGS: There is no suspicious mass, clustered microcalcification, or architectural distortion in either breast on 2D or tomosynthesis images. There has been no change in the mammographic appearance compared with the prior study. us Tabitha Bella MD MAMMO ORDERABLES Final Resu lt from Last 3 Months or Most Recently Relevant to Health Maintenance Insurance [employer] CHOICE POS II Care Teams Industrial Ecologist Relationship Specialty Start Date End Date Annita Sanchez MD [address] [place] [phone] PCP - General Family Practice 04/19/12
--- OUTSIDE RECORDS SUMMARY | 2025-05-15 14:16 | XMS_ITS | Clinical Summary ---
Author Organization [facility] Address [address] [place] [address] Care Team Providers Care Wheel Of Fortune Dealer Name Role Phone Unavailable Primary Care Provider Unavailabl e Source Comments [facility],non-owned Affiliates and Associated Physician Practices is amultiple site organization consisting of ambulatory clinics and hospital sitesin [place], [place], [place] and [place]. This disclosure is being madepursuant to the Care Everywhere program and may not contain all information available regarding this patient. Last updated 18.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 Gender Identity Not on file Sexual Orientation Not on file Plan of Treatment Health Maintenance Due Date Last Done Comments COLOGUARD (AGES 45-75) - COL ON CA SCREENING 1963 COLON MONITORING 1963 COLONOSCOPY - COLON CA SCREENING 1963 CT COLONOGRAPHY - COLON CA SCREENING 1963 Colorectal Cancer Screening 1963 FIT - COLON CA SCREENING 1963 FLEX SIG - COLON CA SCREENING 1963 LIPID TESTING 1963 MAMMOGRAM 1963 HIV SCREENING 1978 HEPATITIS C SCREENING 08/04/1981 DTAP/TDAP/TD VACCINES (1 - Tdap) 1982 Cervical Cancer Screening 1984 PAP SMEAR 1984 PAP with HPV 1993 PNEUMOCOCCAL VACCINE 50+ (1 of 1 - PCV) 2013 ZOSTER VACCINE (1 of 2) 2013 DEPRESSION SCREENING 06/18/2024 COVID-19 VACCINE (1 - 2024-2 6 season) 2025 INFLUENZA VACCINE (#1) 2025 Respiratory Syncytial Virus (RSV) Vaccine Pt: or over 60 yrs (1 - 1-dose 75+ series) 2038 HEPATITIS B VACCINE Aged Out No longe r eligible based on patient's age to complete this topic HIB VACCINE Aged Out No longer eligi ble based on patient's age to complete this topic HPV VACCINE Aged Out No longer eligi ble based on patient's age to complete this topic MENINGOCOCCAL (Group B) VACC INE SHARED DECISION-MAKING Aged Out No longer eligibl e based on patient's age to complete this topic MENINGOCOCCAL GROUPS A/C/Y/W VACCINE Aged Out No longer eligible b ased on patient's age to complete this topic Insurance AN[employer] SELF PAY NO INSURANCE Member Subscriber Plan / Payer (Ef fective for All Dates) Name:Jael Pierre Member ID:Not on file Relation to Subscriber:Not on file Name:JAEL PIERRE Subscriber ID:Not on file (Home) Address: [address] [place] [phone] Payer ID:Not on file Group ID:Not on file Type:Self Pay Address: [place], [place] [employer] * Guarantor: JAEL PIERRE Account Type Relation to Patient Date of Phone Billing Address Personal/Family [address] [place] [address] SELF PAY NO INSURANCE Member Subscriber Plan / Payer (Ef fective for All Dates) Name:Jael Pierre Member ID:Not on file Relation to Subscriber:Not on file Name:JAEL PIERRE Subscriber ID:Not on file Address: [address] [place] [address] Payer ID:Not on file Group ID:Not on file Type:Self Pay Address: [place], [place] * Guarantor: JAEL PIERRE Account Type Relation to Patient Date of Phone Billing Address Personal/Family [address] [place] [address] SELF PAY NO INSURANCE Member Subscriber Plan / Payer (Ef fective for All Dates) Name:Jael Pierre Member ID:Not on file Relation to Subscriber:Not on file Name:JAEL PIERRE Subscriber ID:Not on file Address: [address] [place] [address] Payer ID:Not on file Group ID:Not on file Type:Self Pay Address: [place], [place] * Guarantor: JAEL PIERRE Account Type Relation to Patient Date of Phone Billing Address Personal/Family [address] [place] [address] SELF PAY NO INSURANCE Member Subscriber Plan / Payer (Ef fective for All Dates) Name:Jael Pierre Member ID:Not on file Relation to Subscriber:Not on file Name:JAEL PIERRE Subscriber ID:Not on file Address: [address] [place] [phone] Payer ID:Not on file Group ID:Not on file Type:Self Pay Address: [place], [place]
--- OUTSIDE RECORDS SUMMARY | 2025-05-15 14:16 | XMS_ITS | Clinical Summary ---
Author Organization [id number] Address [address] [place] [phone] Phone Care Team Providers Care Planning Assistant Name Role Phone No, Physician Primary Care Provider [phone] Annita Sanchez MD Unavailable [phone] Dior Baker MD Unavailable Allergies No known active allergies Medications sertraline (ZOLOFT) 50 mg tablet take 1 tablet by oral route every day 0 0 09/15/2016 Active Active Problems Problem Noted Date Diagnosed Date STEPHEN positive 01/17/2017 Obsessive-compulsive disorder 12/02/2013 Overview (09/21/2016): OCD Surgical History Surgery Date Site/Laterality Comments THYROIDECTOMY Thyroidectomy Social History Tobacco Use Types Packs/Day Years Used Date Smoking Tobacco: Never Alcohol Use Standard Drinks/Week Comments No 0 (1 standard drink = 0.6 oz pur e alcohol) Personal Safety Answer Date Recorded Getting School Help Needed Not on file 08/31 Comments Unknown Sex and Gender Information Value Date Recorded Sex Assigned at Not on file Legal Sex Female 9:42 AM CLINICAL MICROBIOLOGIST Gender Identity Not on file Sexual Orientation Not on file Last Filed Vital Signs Vital Sign Reading Time Taken Comments Blood Pressure 138/88 08/02/2018 7:48 AM CLINICAL MICROBIOLOGIST Pulse 69 08/02/2018 7:48 AM CLINICAL MICROBIOLOGIST Temperature 36.4 C (97.6 F) 08/02/2018 7:48 AM CLINICAL MICROBIOLOGIST Respiratory Rate - - Oxygen Saturation 98% 08/02/2018 7:48 AM CLINICAL MICROBIOLOGIST Inhaled Oxygen Concentration - - Weight 85.6 kg (188 lb 11.2 oz) 08/02/2018 7:48 AM CLINICAL MICROBIOLOGIST Height 175.3 cm (5' 9) 08/02/2018 7:48 AM CLINICAL MICROBIOLOGIST Body Mass Index 27.87 08/02/2018 7:48 AM CLINICAL MICROBIOLOGIST Plan of Treatment Not on file Insurance O Care Teams Planning Assistant Relationship Specialty Start Date End Date No, Physician PCP - General 08/06/18 Annita Sanchez MD [facility] [place] [address] 08/06/18 [place] [id number] [address] Rheumatology 06/20/17
== END 2025-05-15 14:05 | disposition home or self-care (01) ==
PROVIDERS: PCP Family Medicine; Visit Provider Urology
DX: N20.0 Calculus of kidney (principal)
CPT/HCPCS: 74018

== ENCOUNTER 2025-05-19 12:10 | Outpatient (CLI) | payer OTHER, SELFPAY ==
--- NOTE | ~2025-05-19 | CT_ITS ---
CT ABDOMEN AND PELVIS WITHOUT CONTRAST Clinical History: Calcium kidney stone Comparison: CT abdomen and pelvis 02/12/2024 Abdominal x-ray 05/15/2025 Technique: Unenhanced axial images lung bases to symphysis pubis Coronal, sagittal reformats CT images acquired with automatic exposure control for dose reduction DLP: 620 mGy-cm Findings: Without intravenous contrast, sensitivity for detecting visceral parenchymal abnormalities decreased. Lung bases: Clear. Visualized heart and pericardium: Unremarkable. Liver: Unremarkable. Gallbladder: Unremarkable. Spleen: Unremarkable. Pancreas: Unremarkable. Adrenal glands: Unremarkable. Kidneys: Right kidney- No hydronephrosis. Stones. Largest 17 mm. Left kidney- mild hydronephrosis. Stones. Largest 8 mm. 7 mm stone distal ureter, with more proximal 4 mm stone. Distal esophagus/stomach: Unremarkable. Small bowel loops: Normal caliber and wall thickness. Colon: Normal caliber and wall thickness. Normal RLQ appendix. Nodes: No enlarged nodes. Peritoneum: No ascites. No free intraperitoneal air. Urinary bladder: Unremarkable. Uterus: Unremarkable. Adnexa: No masses. Bones: No acute bony abnormality. Soft tissues: Unremarkable. Unopacified abdominal aorta: No aneurysmal dilatation. IMPRESSION: 1. 7 mm stone distal left ureter, with additional 4 mm stone mid ureter. Causing mild hydronephrosis. 2. Bilateral nephrolithiasis. Reviewed, dictated and finalized at location R. O ELECTRONICS TECHNICIAN IMPRESSION: 1. 7 mm stone distal left ureter, with additional 4 mm stone mid ureter. Causi ng mild hydronephrosis. 2. Bilateral nephrolithiasis.
== END 2025-05-19 12:11 | disposition home or self-care (01) ==
LOC: MICIMG 12:11
PROVIDERS: PCP Family Medicine; Visit Provider Urology
DX: N20.2 Calculus of kidney with calculus of ureter (principal)
CPT/HCPCS: 74176